=== PATIENT | male | born 1965 | race African-American/Black ===

== ENCOUNTER 2022-02-03 14:59 | Emergency (ER) | payer SELFPAY ==
--- OUTSIDE RECORDS SUMMARY | 2022-02-03 15:01 | XMS REPORT | Continuity of Care Document ---
:1965 Author Organization [facility] t Address [address] [place] [address] Care Team Providers Name Role Phone EMILY Attending Clinician Unavailable Desktop Attending Clinician Unavailable Vinny Ceballos Attending Clinician [phone] Briana Tee Attending Clinician Unavailable DINORA MENDOZA Attending Clinician Unavailable OSCAR Attending Clinician Unavailable Payers Payer Name Policy Type Policy Number Effective Date Expiration Date S ource Problems Condition Condition Condition Status Onset Resolution Last Treating Co mments Source Name Details Category Date Date Treatment Clinician Date Lumbar Lumbar Problem Active [place] pain pain Physici ans T11 T11 Problem Active UT vertebral vertebral Phys ici fracture fracture ans Open Open Problem Active [place] fracture fracture Physic i of of ans eleventh eleventh thoracic thoracic vertebra vertebra with with routine routine healing, healing, unspecifie unspecifie d fracture d fracture morphology morphology , , subsequent subsequent encounter encounter Closed Closed Problem Active UT compressio compressio Ph ysici n fracture n fracture an s of L1 of L1 lumbar lumbar vertebra vertebra with with routine routine healing, healing, subsequent subsequent encounter encounter Allergies, Adverse Reactions, Alerts This patient has no known allergies or adverse reactions. Social History Social Habit Start Date Stop Date Quantity Comments Source time of call 2019-11-28 2019-11-28 11/28/2019 1:12 [facility] 13:12:44 13:12:44 PM Health Medications Ordered Filled Start Stop Current Ordering Indication Dosage Frequency Signature Comments Components Source Medication Medication Date Date Medication? Clinician (SIG) Name Name Duexis Duexis 2019-0 Yes PETR 1 Q0.3333D TAKE 1 UT 800-26.6 MG 800-26.6 MG 5-22 PRASARN TABLET 3 Physici Oral Tablet Oral Tablet 00:00: M.D. TIMES ans 00 DAILY Cyclobenzap Cyclobenzap 2019-0 Yes PETR 1 Q8H TAKE 1 UT rine HCl - rine HCl - 1-02 PRASARN TABLET Physici 10 MG Oral 10 MG Oral 00:00: M.D. EVERY 8 ans Tablet Tablet 00 HOURS PRN muscle spasm Procedures Procedure Date / Time Performed Performing Clinician [facility] e [U] XRAY THORACOLUMBAR SPINE 2019-07-04 00:00:00 [facility] AP AND LAT. [id number] [U] XRAY THORACOLUMBAR SPINE 2019-01-04 00:00:00 [facility] AP AND LAT. [id number] [U] XRAY THORACOLUMBAR SPINE 2018-10-04 00:00:00 [place] [facility] AP AND LAT. [id number] [U] XRAY THORACOLUMBAR SPINE 2018-09-19 00:00:00 [facility] AP AND LAT. [id number] Physical Therapy 2018-08-17 00:00:00 [place] Physicia ns [U] XRAY THORACOLUMBAR SPINE 2018-08-15 00:00:00 [place] [facility]icians AP AND LAT. [id number] Encounters Start End Encounter Admission Attending Care Care Encounter Source Date/Time Date/Time Type Type Clinicians Facility Department ID 2021-05-29 Outpatient [facility] [id number] [facility] 17:01:02 [id number] 2020-02-20 2020-02-20 Emergency E AZNAUROVA-A [facility]BL [facility] [id number] [facility] 17:25:00 21:47:00 ZAIN WALKER 2019-11-28 2019-11-28 Office Desktop, [facility] Triage Nurse [facility] Encounter/ [facility] 00:00:00 00:00:00 Visit [place] [facility] [id number] [facility] Kirsten Tee [facility] [phone] [facility] 2019-11-26 2019-11-26 Emergency E JUAN MENDOZA [facility] [id number] MHBL 15:27:00 17:10:00 ANGELA 2019-07-05 2019-07-05 Rufino MOORE [facility] Orthopedics [id number] [place] 08:15:00 08:15:00 t; Janki HUMPHREYS at [facility] Jett MOORE, Sports ans PETR, M.D. [facility] 2019-01-04 2019-01-04 [facility] [id number] [place] 08:15:00 08:15:00 t; Janki HUMPHREYS at [facility] capri MOORE M.D. 2018-10-10 2018-10-10 [facility] 50 [id number] [place] 07:30:00 07:30:00 t; [facility] 2018-09-28 2018-09-28 [facility] [id number] [place] 13:45:00 13:45:00 t; [facility] 2018-08-17 2018-08-17 [facility] [id number] [place] 10:15:00 10:15:00 t; [facility] M.[facility] 2018-07-15 2018-07-15 [facility] [id number] [place] 09:30:00 09:30:00 t; Janki HUMPHREYS [facility] capri MOORE M.D. 2018-07-08 2018-07-08 Emergency E MHBL MHBL [id number] MHBL 13:35:00 13:35:00 Results Test Description Test Time Test Comments Results Result Comments Source CBC W/AUTO DIFF WITH PLATELETS 2022-02-03 08:35:36 Test Item Value Reference Range Interpretation Comme nts WBC (test code = 1001) 6.1 K/UL 3.5-11.0 RBC (test code = 1002) 4.20 M/UL 4.50-6.10 L HEMOGLOBIN (test code = 6.8 G/DL 13.5-17.0 LL 1003) RESULTS RECHECK ED AND VERIFIED HEMATOCRIT (test code = 26.1 % 40.0-51.0 L 1004) MCV (test code = 1005) 62.1 fL 80.0-99.0 L MCH (test code = 1006) 16.2 PG 25.0-33.0 L MCHC (test code = 1007) 26.1 G/DL 31.0-36.0 L RDW (test code = 1038) 21.8 % 11.5-15.0 H NEUTROPHILS (test code = 52.5 % AUTOMATED 1008) DIFFERENTIAL CO NFIRMED WITH ALONDRA Mg SLIDE REVIEW. LYMPHOCYTES (test code = 32.7 % 1010) MONOCYTES (test code = 10.8 % 1011) EOSINOPHILS (test code = 2.6 % 1012) BASOPHILS (test code = 1.1 % 1013) IMMATURE GRANULOCYTES 0.3 % (test code = 1036) NUCLEATED RBCS (test code 0.0 /100 WBC'S See_Comment [Automated message] The = 1065) system which ge nerated this result transmit etta reference range: 0.0. The reference range was not u sed to interpret this result as normal/abnormal . PLATELET COUNT (test code 281 K/UL 130-400 = 1015) ABSOLUTE NEUTROPHILS (test 3.19 K/UL 1.50-7.50 code = 1066) ABSOLUTE LYMPHOCYTES (test 1.99 K/UL 1.00-4.00 code = 1067) ABSOLUTE MONOCYTES (test 0.66 K/UL 0.20-1.00 code = 1068) ABSOLUTE EOSINOPHILS (test 0.16 K/UL 0.00-0.50 code = 1040) ABSOLUTE BASOPHILS (test 0.07 K/UL 0.00-0.20 code = 1069) ABS IMMATURE GRANULOCYTES 0.02 K/UL 0.00-0.10 (test code = 1020) ABS NUCLEATED RBCS (test 0.00 K/UL 0.00-0.11 code = 85035) COMMENTS (test code = (NOTE) MODERATE 1016) ANISOCYTOSIS FEW ELLIPTOCYTES MARKED HYPOCHRO MASIA MARKED MICRO CYTOSIS SLIGHT POI KILOCYTOSIS SLIGHT POLYCHROMASIA FEW TEAR DROP C ELLS P LATELETS APPEAR NORMAL UNLESS OTHERWISE INDIC ATED, ALL TESTING PERFORM ED ATCLINICAL PATHOLOGY [employer] [address] [facility] [address] PMO LEAD: PETR JAIN M.D. CLIA NUMBER [id number] CAP ACCREDITATION N O. [id number] COMPREHENSIVE METABOLIC [id number] 04:11:42 Test Item Value Reference Range Interpretation Comments GLUCOSE (test code = 99 MG/DL 70-99 2217) BUN (test code = 13 MG/DL 6-20 2207) CREATININE (test 0.95 MG/DL 0.80-1.40 code = 2213) eGFR (2020 CKD-EPI) 93 ML/MIN/1.73 >60 (test code = 42045) CALC BUN/CREAT (test 14 RATIO 6-28 code = 2235) SODIUM (test code = 140 MEQ/L 141-053 5120) POTASSIUM (test code 4.4 MEQ/L 3.5-5.4 = 2227) CHLORIDE (test code 105 MEQ/L 95-107 = 2214) CARBON DIOXIDE (test 25 MEQ/L 19-31 code = 2205) CALCIUM (test code = 9.1 MG/DL 8.5-10.5 2208) PROTEIN, TOTAL (test 7.3 G/DL 6.1-8.3 code = 2228) ALBUMIN (test code = 4.4 G/DL 3.5-5.2 2200) CALC GLOBULIN (test 2.9 G/DL 1.9-3.7 code = 2239) CALC A/G RATIO (test 1.5 RATIO 1.0-2.6 code = 2233) BILIRUBIN, TOTAL <0.2 MG/DL See_Comment [Automated message] (test code = 2206) The syste m which generated this result transmit etta reference range : <=1.2. The refe rence range was not u sed to interpret th is result as normal/abnormal . ALKALINE PHOSPHATASE 69 U/L 40-123 (test code = 2203) AST (test code = 31 U/L 9-50 2217) ALT (test code = 22 U/L 5-50 2218) LIPID [id number] 04:11:42 Test Item Value Reference Range Interpretation Comments CHOLESTEROL (test 151 MG/DL <200 code = 2210) TRIGLYCERIDES (test 130 MG/DL <150 code = 2232) HDL CHOLESTEROL (test 42 MG/DL >39 code = 2220) CALC LDL CHOL (test 86 MG/DL <100 NOTE: C ALCULATED LDL code = 2237) IS BASED ON SARABJIT-BAER METHOD WHICHINCLUDES ADJUSTABLE TRIGLYCERIDE:VL DL CHOLESTEROL RAT IO.THIS FACTOR VARIES B Y MEASURED TRIGLY CERIDE AND NON-HDLCHOL ESTEROL CONCENTRATIONS WITH INCREASED CALCU LATED LDL SEENIN HIGH ER TRIGLYCERIDE OR LOWER NON-HDL SPECIME NS. FOR MOREINFORMATION , SEE CLIENT ANNOUNCE MENT AT [email or web address] [email or web address] RATIO LDL/HDL 2.05 RATIO <3.55 (test code = 2238)
[2022-02-03 16:30] LABS: Protime INR 1.08
[2022-02-03 16:37] LABS: Absolute Lymphocytes (CBC) 3.1 K/uL (0.7-4.9); Lymphocytes % 57.9 % (15.3-44.8); MPV 8.3 fL (7.6-11.3); RBC Red Blood Cell Count 3.99 M/uL (4.33-5.43)
[2022-02-03 16:47] LABS: Albumin 3.6 g/dL (3.4-5.0); Bilirubin Total 0.2 mg/dL (0.2-1.0); Potassium 3.7 mmol/L (3.5-5.1); Protein, Total 7.2 g/dL (6.4-8.2); Troponin High Sensitivity 8.8 pg/mL (<58.9)
[2022-02-03] MEDS ORDERED: NA CHLORIDE 0.9% 1,000 ML ONE (16:50)
[2022-02-03 16:57] LABS: Anisocytosis 2+; Blood Morphology Comment NOTED (NOT SEEN); Platelet Estimate ADEQ
[2022-02-03 16:58] LABS: Hypochromasia 3+
[2022-02-03 18:03] LABS: RBC Red Blood Cell Count 4.02 M/uL (4.33-5.43)
[2022-02-03 18:34] LABS: Ferritin 3.3 ng/mL (26-388); Folic Acid, (Folate) > 20.0 ng/mL (3.1-17.5); Transferrin 296 mg/dL (200-360)
[2022-02-03] MEDS ORDERED: NA CHLORIDE 0.9% 250 ML ONE (19:41)
--- NOTE | 2022-02-03 20:17 | ER ---
Nurse's Notes [facility] Name: Nael Tristan Age: 56 yrs Sex: Male : 1965 Arrival Date: 02/03/2022 Time: 15:01 Bed 13 Private MD: Diagnosis: Iron deficiency anemia, unspecified Presentation: 02/03 15:07 Chief complaint: Patient states: was sent by the [facility] due to low hemoglobin. vg1 Denies Chest pain, nausea or vomiting; states SOB, dizziness and fatigue. Coronavirus screen: Vaccine status: Patient reports receiving the 2nd dose of the covid vaccine. Client denies travel out of the [place] in the last 14 days. Ebola Screen: Patient denies exposure to infectious person. Patient denies travel to an Ebola-affected area in the 21 days before illness onset. Initial Sepsis Screen: Does the patient meet any 2 criteria? No. Patient's initial sepsis screen is negative. Does the patient have a suspected source of infection? No. Patient's initial sepsis screen is negative. Risk Assessment: Do you want to hurt yourself or someone else? Patient reports no desire to harm self or others. Onset of symptoms was February 03, 2022. 15:07 Method Of Arrival: Ambulatory vg1 15:07 Acuity: KANDY 3 vg1 Triage Assessment: 15:09 General: Appears comfortable, Behavior is calm, cooperative. Pain: Denies pain. Neuro: vg1 Level of Consciousness is awake, alert, obeys commands, Oriented to person, place, time, situation. Respiratory: Airway is patent Respiratory effort is even, unlabored. Historical: - Allergies: 15:09 PENICILLINS; vg1 - Home Meds: 15:09 omeprazole Oral [Active]; vg1 - PMHx: 15:09 Acid Reflux; vg1 - PSHx: 15:09 Spinal Fusion; vg1 - Immunization history:: Client reports receiving the 2nd dose of the Covid vaccine. - Social history:: Smoking status: Patient reports the use of cigarette tobacco products, smokes one-half pack cigarettes per day. Screenin:56 Abuse screen: Denies threats or abuse. Denies injuries from another. Nutritional ww screening: No deficits noted. Tuberculosis screening: No symptoms or risk factors identified. Fall Risk None identified. Assessment: 16:56 General: Appears in no apparent distress. comfortable, Behavior is calm, cooperative. ww Neuro: Moody Agitation-Sedation Scale (RASS): 0 - Alert and Calm Level of Consciousness is awake, alert, obeys commands, Oriented to person, place, time, situation, Moves all extremities. Gait is steady, Speech is normal. Cardiovascular: Capillary refill < 3 seconds Patient's skin is warm and dry. Rhythm is regular Chest pain is denied. Respiratory: Airway is patent Respiratory effort is even, unlabored, Respiratory pattern is regular, symmetrical. GI: No signs and/or symptoms were reported involving the gastrointestinal system. Abdomen is non-distended. Derm: No signs and/or symptoms reported regarding the dermatologic system. Skin is healthy with good turgor. Musculoskeletal: No signs and/or symptoms reported regarding the musculoskeletal system. 17:40 Reassessment: Patient appears in no apparent distress at this time. No changes from ww previously documented assessment. Patient and/or family updated on plan of care and expected duration. Pain level reassessed. Patient is alert, oriented x 3, equal unlabored respirations, skin warm/dry/pink. 18:45 Reassessment: Patient appears in no apparent distress at this time. No changes from ww previously documented assessment. Patient and/or family updated on plan of care and expected duration. Pain level reassessed. Patient is alert, oriented x 3, equal unlabored respirations, skin warm/dry/pink. 20:29 Reassessment: Patient appears in no apparent distress at this time. Patient and/or ke1 family updated on plan of care and expected duration. Pain level reassessed. Patient is alert, oriented x 3, equal unlabored respirations, skin warm/dry/pink. Waiting on RBcs for infusion. 21:07 Reassessment:. ke1 23:38 Reassessment: monitored 30 Mn post transfusion, NARN. ke1 Vital Signs: 15:07 BP 132 / 82; Pulse 88; Resp 16; Temp 99.1(TE); Pulse Ox 100% on R/A; Weight 95.25 kg; vg1 Height 5 ft. 7 in. (170.18 cm); Pain 0/10; 16:45 BP 126 / 76; Pulse 63; Resp 19; Pulse Ox 100% on R/A; ww 17:45 BP 131 / 76; Pulse 64; Resp 20; Pulse Ox 99% on R/A; ww 18:30 BP 131 / 85; Pulse 62; Resp 22; Pulse Ox 100% on R/A; ww 15:07 Body Mass Index 32.89 (95.25 kg, 170.18 cm) [facility] ED Course: 15:01 Patient arrived in ED. rg4 15:07 Dorothea Goddard FNP is [facility] 15:07 Markel Goodson MD is Attending Physician. [facility] 15:08 Triage completed. vg1 15:09 Arm band placed on. vg1 15:58 Alexa Wu, RN is Primary Nurse. ww 16:56 Patient has correct armband on for positive identification. Bed in low position. Call ww light in reach. Side rails up X 1. Client placed on continuous cardiac and pulse oximetry monitoring. NIBP monitoring applied. Warm blanket given. 16:56 Inserted saline lock: 20 gauge in left antecubital area, using aseptic technique. ww 23:37 No provider procedures requiring assistance completed. IV discontinued. ke1 Administered Medications: 17:17 Drug: NS 0.9% 1000 ml Route: IV; Rate: 1 bolus; Site: left antecubital; Medication: 21:00 Blood products: PRBCs X 1 unit given. See transfusion record. ke1 Outcome: 20:17 Discharge ordered by . [facility] 23:37 Discharged to home ambulatory. ke1 23:37 Condition: good 23:37 Discharge instructions given to patient. 23:39 Patient left the ED. ke1 Signatures: Neelam Duong 4 Alicia Duong RN RN [facility] Alexa Wu RN RN ww Ebrottie, Kouassi, RN RN ke Dorothea Goddard FNP PASSENGER RATE CLERK [facility]
--- NOTE | 2022-02-03 20:17 | EDPHYS ---
Physician Documentation [facility] Name: Nael Tristan Age: 56 yrs Sex: Male : 1965 Arrival Date: 02/03/2022 Time: 15:01 Bed 13 Private MD: Markel Camacho HPI: 02/03 15:15 This 56 yrs old Black Male presents to ER via Ambulatory with complaints of Abnormal jh7 Lab Results. 15:15 Onset: The symptoms/episode began/occurred today. Patient presents for abnormal lab jh7 results. States that he went to a rehabilitation center today that offered blood work. He was told that his hemoglobin was 6.8 and that he needed to go to the ER. States that he noticed that he has been craving ice for the past 2 years. States that he felt a little fatigued and dizzy today after working out. Denies vomiting blood, black stool, trauma, or abdominal pain. States that he was on iron a long time ago but that it caused constipation and he stopped taking it. Denies any symptoms at this time.. Historical: - Allergies: 15:09 PENICILLINS; vg1 - Home Meds: 15:09 omeprazole Oral [Active]; vg1 - PMHx: 15:09 Acid Reflux; vg1 - PSHx: 15:09 Spinal Fusion; vg1 - Immunization history:: Client reports receiving the 2nd dose of the Covid vaccine. - Social history:: Smoking status: Patient reports the use of cigarette tobacco products, smokes one-half pack cigarettes per day. ROS: 15:15 Constitutional: Negative for fever, chills, and weight loss, ENT: Negative for injury, jh7 pain, and discharge, Neck: Negative for injury, pain, and swelling, Cardiovascular: Negative for chest pain, palpitations, and edema, Respiratory: Negative for shortness of breath, cough, wheezing, and pleuritic chest pain, Abdomen/GI: Negative for abdominal pain, nausea, vomiting, diarrhea, and constipation, Back: Negative for injury and pain, Skin: Negative for injury, rash, and discoloration, Neuro: Negative for headache, weakness, numbness, tingling, and seizure. 15:15 All other systems are negative. Exam: 15:15 Constitutional: This is a well developed, well nourished patient who is awake, alert, jh7 and in no acute distress. Eyes: Pupils equal round and reactive to light, extra-ocular motions intact. Lids and lashes normal. Conjunctiva and sclera are non-icteric and not injected. Cornea within normal limits. Periorbital areas with no swelling, redness, or edema. ENT: Nares patent. No nasal discharge, no septal abnormalities noted. Oropharynx with no redness, swelling, or masses, exudates, or evidence of obstruction, uvula midline. Mucous membranes moist. Cardiovascular: Regular rate and rhythm with a normal S1 and S2. No gallops, murmurs, or rubs. Normal PMI, no JVD. No pulse deficits. Respiratory: Lungs have equal breath sounds bilaterally, clear to auscultation and percussion. No rales, rhonchi or wheezes noted. No increased work of breathing, no retractions or nasal flaring. Abdomen/GI: Soft, non-tender, with normal bowel sounds. No distension or tympany. No guarding or rebound. No evidence of tenderness throughout. Skin: Warm, dry with normal turgor. Normal color with no rashes, no lesions, and no evidence of cellulitis. Neuro: Awake and alert, GCS 15, oriented to person, place, time, and situation. Motor strength 5/5 in all extremities. Sensory grossly intact. Normal gait. Vital Signs: 15:07 BP 132 / 82; Pulse 88; Resp 16; Temp 99.1(TE); Pulse Ox 100% on R/A; Weight 95.25 kg; vg1 Height 5 ft. 7 in. (170.18 cm); Pain 0/10; 16:45 BP 126 / 76; Pulse 63; Resp 19; Pulse Ox 100% on R/A; ww 17:45 BP 131 / 76; Pulse 64; Resp 20; Pulse Ox 99% on R/A; ww 18:30 BP 131 / 85; Pulse 62; Resp 22; Pulse Ox 100% on R/A; ww 15:07 Body Mass Index 32.89 (95.25 kg, 170.18 cm) 1 MDM: 15:49 Patient medically screened. [facility] 19:46 Differential diagnosis: Microcytic hypochromic anemia, GI bleed. Data reviewed: vital [facility] signs, nurses notes, lab test result(s), EKG. Data interpreted: Pulse oximetry: is 100 %. Interpretation: normal. Counseling: I had a detailed discussion with the patient and/or guardian regarding: the historical points, exam findings, and any diagnostic results supporting the discharge/admit diagnosis, the need for outpatient follow up, Hematology. ED course: The patient remained asymptomatic and in no distress throughout his ER stay. Negative stool occult, abdomen soft and nontender, and no other signs of an active GI bleed. He stated that he had been craving ice for 2 years, and 3 years ago he could not donate plasma because his iron was too low. Informed him that we would transfuse 1 unit of blood, and we would start him on iron supplements with stool softeners. Also advised him to follow-up with a planner intern outpatient. If he develops new concerning symptoms, he is to return to the ER immediately for eval.. 20:20 Transition of care: After a detail discussion of the patient's case, care is [facility] transferred to Luis Felipe Simon MD. 02/03 15:16 Order name: CBC with Diff; Complete Time: 17:14 [facility] 02/03 15:16 Order name: CMP; Complete Time: 17:14 [facility] 02/03 15:16 Order name: PT-INR; Complete Time: 16:40 [facility] 02/03 15:16 Order name: Type And Screen [facility] 02/03 15:16 Order name: Troponin High Sensitivity; Complete Time: 17:14 [facility] 02/03 16:58 Order name: Manual Differential [facility] 02/03 17:18 Order name: TIBC; Complete Time: 19:10 [facility] 02/03 17:18 Order name: Ferritin; Complete Time: 19:10 [facility] 02/03 17:18 Order name: B12; Complete Time: 19:10 [facility] 02/03 17:18 Order name: Folic Acid,Serum (folate); Complete Time: 19:10 [facility] 02/03 17:18 Order name: Retic Count; Complete Time: 18:20 [facility] 02/03 18:08 Order name: Packed RBCs (Additional Unit) [facility] 02/03 19:10 Order name: Guiac [facility] 02/03 15:16 Order name: IV Saline Lock; Complete Time: 16:21 [facility] 02/03 15:16 Order name: Labs collected and sent; Complete Time: 16:21 [facility] 02/03 15:16 Order name: EKG; Complete Time: 15:16 [facility] 02/03 18:00 Order name: Transfuse; Complete Time: 21:06 [facility] 02/03 20:14 Order name: ABO/RH no charge; Complete Time: 20:21 EDAR EC:19 Rate is 74 beats/min. Rhythm is regular. QRS is negative in leads II, aVF, V1. NV [facility] interval is normal. QRS interval is normal. QT interval is normal. T waves are Normal. No ST changes noted. Clinical impression: No evidence of ischemia. Administered Medications: 17:17 Drug: NS 0.9% 1000 ml Route: IV; Rate: 1 bolus; Site: left antecubital; Disposition Summary: 02/03/22 20:17 Discharge Ordered Location: Home [facility] Problem: new [facility] Symptoms: are unchanged [facility] Condition: Stable [facility] Diagnosis - Iron deficiency anemia, unspecified [facility] Followup: [facility] - With: Private Physician - When: 2 - 3 days - Reason: Further diagnostic work-up Discharge Instructions: - Discharge Summary Sheet [facility] - Iron Deficiency Anemia, Adult [facility] - Iron-Rich Diet [facility] - Preventing Iron Deficiency Anemia, Adult [facility] - Iron Level and Total Iron-Binding Capacity Tests [facility] Forms: - Medication Reconciliation Form [facility] - Thank You Letter [facility] Prescriptions: - Colace 100 mg Oral Tablet - take 1 tablet by ORAL route every 12 hours; 14 tablet; Refills: 0, Product [facility] Selection Permitted - Ferrous Sulfate 325 mg (65 mg Iron) Oral Tablet - take 1 tablet by ORAL route every 8 hours; 90 tablet; Refills: 0, Product [facility] Selection Permitted Signatures: Dispatcher [employer] Alicia Gallego RN RN 1 Alexa Wu RN RN ww Dorothea Goddard FNP ELECTRICAL SYSTEMS DESIGN ENGINEER [facility] Corrections: (The following items were deleted from the chart) 15:59 15:15 Patient presents for abnormal lab results. States that he went to a [facility] rehabilitation center today that offered blood work. He was told that his hemoglobin was 6.8 and that he needed to go to the ER. States that he noticed that he has been craving ice for the past 2 years. States that he felt a little fatigued and dizzy today after working out. Denies vomiting blood, black stool, trauma, or abdominal pain. States that he was on iron a long time ago but that it caused constipation and he stopped taking it.. jh7 18:17 18:00 FERRITIN+C.LAB.ARASH ordered. EDMS EDMS
[2022-02-04 00:31] VITALS: TEMP 99.1
[2022-02-04 00:35] VITALS: BP 131/85; O2SAT 100
--- NOTE | 2022-02-04 07:19 | EKG ---
Test Date: 2022-02-03 Test Time: 16:03:58 [employer]: JOAQUIM MEASUREMENT RESULTS: Intervals: Rate: 74 CA: 170 QRSD: 80 QT: 386 QTc: 428 [place]: P: 67 CA: 170 QRS: -58 T: 11 INTERPRETIVE STATEMENTS: Normal sinus rhythm Left anterior fascicular block Abnormal ECG No previous ECG available for comparison Electronically Signed On 02-04-22 07:17:20 CDT by Afshin Ghotra
== END 2022-02-03 23:39 | disposition home or self-care (01) ==
LOC: ER 14:59
DX: D50.9 Iron deficiency anemia, unspecified (principal); K21.9 Gastro-esophageal reflux disease without esophagitis; I10 Essential (primary) hypertension; F17.210 Nicotine dependence, cigarettes, uncomplicated; Z88.0 Allergy status to penicillin
CPT/HCPCS: 36415; 80053; 82272; 82607; 82728; 82746; 83540; 84466; 84484; 85025; 85044; 85610; 86850; 86900; 86901; 93005; J7030; J7050; P9016